=== PATIENT | female | born 1940 | race Caucasian/White ===

== ENCOUNTER → 2017-02-20 | Outpatient (CLI) | payer MEDICARE, OTHER ==
[~2017-02-20] VITALS: Ht 162.6 cm; Wt 62.8 kg
[~2017-02-20] MED LIST: AMLO5TAB2 PO; AMLO5TAB22 PO; BENZOCAINE 20% ORAL SPR 60 ML CAN OROPHARYNG ONE; DICL25 PO; HYDR200T42 PO; LEVO100T5 PO; LEVO112T2 PO; LIDOCAINE HCL 2% JELLY 5 ML SYRINGE TOPICAL ONE; PLAQ200T PO; VOLT1GEL4
[2017-02-20 07:11] VITALS: BP 138/65; PULSE 64; RESP 16; TEMP 97.4; O2SAT 99
== END ==
LOC: HEND 06:56
PROVIDERS: ATTEND Internal Medicine Gastroenterology
DX: K44.9 Diaphragmatic hernia without obstruction or gangrene (principal)
CPT/HCPCS: 91010